=== PATIENT | male | born 1975 | race Caucasian/White ===

== ENCOUNTER 2016-12-09 18:21 | Emergency (ER) | payer SELFPAY ==
[~2016-12-09] VITALS: Ht 190.5 cm; Wt 172.0 kg
[2016-12-09 18:22] VITALS: BP 145/99; PULSE 100; RESP 24; TEMP 99.1; O2SAT 98
--- NOTE | 2016-12-09 18:42 | PD ---
Physical Exam Date Seen by Provider: Dec 09, 2016 Time Seen by Provider: 18:39 Narrative 41-year-old white male presents to emergency Department with complaints of sudden onset shortness of breath, difficulty breathing, tingling and flushing to face. Patient has similar episode last week but included a headache. This resolved spontaneously. No recent illness. Vital signs reviewed. Awaiting bed placement Data Data Last Documented VS Vital Signs Date Time Temp Pulse Resp B/P (MAP) Pulse Ox O2 Delivery O2 Flow Rate FiO2 12/09/16 18:22 99.1 100 24 145/99 (114) 98 Room Air [facility] Medical Record Reviewed: No Supervised Visit with TRAVIS: No Scripts No Active Prescriptions or Reported Meds Domingo Gaitan Dec 09, 2016 18:42
[2016-12-09 18:52] VITALS: BP 152/81; PULSE 89; RESP 20; TEMP 97.8; O2SAT 98
[2016-12-09] MEDS ORDERED: RESP: ALBUTEROL 2.5 MG/IPRATROPIUM 0.5 MG NEB (SCH) INH ONE (19:00)
--- NOTE | 2016-12-09 19:01 | PD ---
HPI Chief Complaint: Respiratory Symptoms Time Seen by Provider: 18:50 Travel History International Travel<30 days: No Contact w/Intl Traveler<30days: No Traveled to known affect area: No History of Present Illness HPI This is a 41-year-old male who denies any significant past medical history. He reports for evaluation of dyspnea and tingling on the scalp. He reports that he was at work today walking across the [employer] when he developed sudden dyspnea with associated tingling sensation on the scalp. It feels like he cannot catch her complete breath. He reports that he had similar symptoms last week which lasted for approximately one hour and resolved spontaneously. He had similar symptoms for 20 minutes one other time a few weeks ago which resolved spontaneously. He is currently experiencing the sensation. He denies any cough or congestion, chest pain, palpitations, abdominal pain, nausea or vomiting, recent travel, recent surgery, recent illness. He endorses occasional tobacco use. He denies any anxiety, depression, recent social stressors, any illicit drug use. He has no other complaints at this time. [facility] Past Medical History Medical History: Denies Significant Hx Diminished Hearing: No Tetanus Vaccination: < 5 Years Influenza Vaccination: No Social History Alcohol Use: No (pt denies) Tobacco Use: Yes Substance Use: No (pt denies) Allergies-Medications (Allergen,Severity, Reaction): Coded Allergies: No Known Allergies (Verified , 12/09/16) Reported Meds & Prescriptions Reported Meds & Active Scripts Active No Active Prescriptions or Reported Medications Review of Systems Except as stated in HPI: all other systems reviewed are Neg Physical Exam Narrative GENERAL: Well-developed well-nourished male in no acute distress SKIN: Warm and dry. HEAD: Atraumatic. Normocephalic. EYES: Pupils equal and round. No scleral icterus. No injection or drainage. ENT: No nasal bleeding or discharge. Mucous membranes pink and moist. NECK: Trachea midline. No JVD. No lymphadenopathy. Neck supple. CARDIOVASCULAR: Regular rate and rhythm. No murmur appreciated. RESPIRATORY: No accessory muscle use. Clear to auscultation. Breath sounds equal bilaterally. No obvious crackles, wheezing or rhonchi. No tachypnea. GASTROINTESTINAL: Abdomen soft, non-tender, nondistended. Hepatic and splenic margins not palpable. MUSCULOSKELETAL: No obvious deformities. There is no lower extremity edema with negative Homans bilaterally. The left leg appears normal. 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 NEUROLOGICAL: Awake and alert. No obvious cranial nerve deficits. Motor grossly within normal limits. Normal speech. PSYCHIATRIC: Appropriate mood and affect; insight and judgment normal. Data Data Last Documented VS Vital Signs Date Time Temp Pulse Resp B/P (MAP) Pulse Ox O2 Delivery O2 Flow Rate FiO2 12/09/16 20:40 79 18 127/89 (102) 98 Room Air 12/09/16 18:52 97.8 Orders Orders Complete Blood Count With Diff (12/09/16 19:00) Comprehensive Metabolic Panel (12/09/16 19:00) D-Dimer (12/09/16 19:00) Magnesium (Mg) (12/09/16 19:00) Ckmb (Isoenzyme) Profile (12/09/16 19:00) Troponin I (12/09/16 19:00) Electrocardiogram (12/09/16 19:00) Ecg Monitoring (12/09/16 19:00) Oximetry (12/09/16 19:00) Chest, Single Ap (12/09/16 19:00) Albuterol-Ipratropium Neb (Duoneb Neb) (12/09/16 19:00) CKMB (12/09/16 19:28) CKMB% (12/09/16 19:28) Labs Laboratory Tests Test 12/09/16 19:28 White Blood Count 6.9 TH/MM3 Red Blood Count 4.48 MIL/MM3 Hemoglobin 15.4 GM/DL Hematocrit 42.2 % Mean Corpuscular Volume 94.1 FL Mean Corpuscular Hemoglobin 34.3 PG Mean Corpuscular Hemoglobin Concent 36.4 % Red Cell Distribution Width 13.3 % Platelet Count 207 TH/MM3 Mean Platelet Volume 8.9 FL Neutrophils (%) (Auto) 66.9 % Lymphocytes (%) (Auto) 22.3 % Monocytes (%) (Auto) 7.6 % Eosinophils (%) (Auto) 2.7 % Basophils (%) (Auto) 0.5 % Neutrophils # (Auto) 4.6 TH/MM3 Lymphocytes # (Auto) 1.5 TH/MM3 Monocytes # (Auto) 0.5 TH/MM3 Eosinophils # (Auto) 0.2 TH/MM3 Basophils # (Auto) 0.0 TH/MM3 CBC Comment AUTO DIFF Differential Comment AUTO DIFF CONFIRMED Platelet Estimate NORMAL Platelet Morphology Comment NORMAL D-Dimer Quantitative (PE/DVT) 0.27 MG/L FEU Blood Urea Nitrogen 6 MG/DL Creatinine 1.04 MG/DL Random Glucose 106 MG/DL Total Protein 7.0 GM/DL Albumin 3.9 GM/DL Calcium Level 8.6 MG/DL Magnesium Level 2.2 MG/DL Alkaline Phosphatase 77 U/L Aspartate Amino Transf (AST/SGOT) 33 U/L Alanine Aminotransferase (ALT/SGPT) 69 U/L Total Bilirubin 0.5 MG/DL Sodium Level 139 MEQ/L Potassium Level 3.8 MEQ/L Chloride Level 106 MEQ/L Carbon Dioxide Level 26.2 MEQ/L Anion Gap 7 MEQ/L Estimat Glomerular Filtration Rate 80 ML/MIN Total Creatine Kinase 385 U/L Creatine Kinase MB 2.5 NG/ML Creatine Kinase MB % 0.6 % Troponin I LESS THAN 0.02 NG/ML MDM Medical Decision Making Medical Screen Exam Complete: Yes Emergency Medical Condition: Yes Medical Record Reviewed: Yes Differential Diagnosis Anxiety, atelectasis, spontaneous pneumothorax, pulmonary embolism, electrolyte abnormality, arrhythmia Narrative Course This is a 41-year-old male who has been experiencing episodes of spontaneous dyspnea over the past few weeks which last approximately one hour. He is currently Greig any symptoms. He reports associated scalp tingling sensation. On examination he is obese with a BMI of 47.4. Physical examination is otherwise unremarkable. He was mildly tachycardic in triage. The patient will be placed on ECG monitoring and pulse oximetry. A chest x-ray has been ordered. A 12-lead EKG has been ordered. Basic lab work is been ordered. Primary examination the patient does feel improved and feels that the DuoNeb helped with his symptoms. His CBC is unremarkable. EKG reveals sinus rhythm with occasional PVCs. CK is 385 but his lab work is otherwise unremarkable. D- dimer is negative. Chest x-ray is normal. I At this point and the plan is to discharge the patient with close follow-up with primary care physician. He is stable for discharge. Procedures EKG Prior to Arrival: Yes Diagnosis Primary Impression: Dyspnea Qualified Codes: R06.00 - Dyspnea, unspecified Additional Instructions: Stay well hydrated and well-nourished. Follow-up close with primary care physician. Return for any acutely new or worsening symptoms. Med/Other Pt SpecificInfo: No Change to Meds Scripts No Active Prescriptions or Reported Meds Disposition: 01 DISCHARGE HOME Condition: Stable Jeffrey Thomas Dec 09, 2016 19:01
[2016-12-09 19:24] VITALS: RESP 18; O2SAT 98
--- NOTE | 2016-12-09 19:44 | RADRPT ---
EXAM DATE/TIME: 12/09/2016 19:05 [place] COMPARISON: No previous studies available for comparison. INDICATIONS : Shortness of breath and dizziness. MEDICAL HISTORY : None. SURGICAL HISTORY : None. ENCOUNTER: Initial ACUITY: 1 day PAIN SCORE: 0/10 LOCATION: chest FINDINGS: A single view of the chest demonstrates the lungs to be symmetrically aerated without evidence of mas s, infiltrate or effusion. The cardiomediastinal contours are unremarkable. Osseous structures are intact. CONCLUSION: No acute disease. Sachin Pittman MD on December 09, 2016 at 19:43 Board Certified Radiologist. This report was verified electronically.
[2016-12-09 19:46] VITALS: BP 152/81; PULSE 82; RESP 18; O2SAT 97
[2016-12-09 19:49] LABS: AUTOMATED NEUTROPHIL # 4.6 TH/MM3 (1.8-7.7); BASOPHIL % 0.5 % (0.0-2.0); EOSINOPHIL # 0.2 TH/MM3 (0-0.4); EOSINOPHIL % 2.7 % (0.0-4.0); HEMATOCRIT 42.2 % (39.0-51.0); LYMPH % 22.3 % (9.0-44.0); LYMPHOCYTE # 1.5 TH/MM3 (1.0-4.8); MEAN CELL VOLUME 94.1 FL (80.0-100.0); MEAN CORPUSCULAR HEMOGLOBIN 34.3 PG (27.0-34.0); MONO % 7.6 % (0.0-8.0); NEUT % 66.9 % (16.0-70.0); PLATELET COUNT 207 TH/MM3 (150-450); RED BLOOD COUNT 4.48 MIL/MM3 (4.50-5.90); RED CELL DISTRIBUTION WIDTH 13.3 % (11.6-17.2); WHITE BLOOD COUNT 6.9 TH/MM3 (4.0-11.0)
[2016-12-09 20:02] LABS: ANION GAP 7 MEQ/L (5-15); AST (GOT) 33 U/L (15-37); BICARBONATE 26.2 MEQ/L (21.0-32.0); BLOOD UREA NITROGEN 6 MG/DL (7-18); CHLORIDE 106 MEQ/L (98-107); GLOMERULAR FILTRATION RATE 80 ML/MIN (>89); MAGNESIUM 2.2 MG/DL (1.5-2.5); POTASSIUM 3.8 MEQ/L (3.5-5.1); SODIUM (NA) 139 MEQ/L (136-145)
[2016-12-09 20:03] LABS: ALT (GPT) 69 U/L (12-78)
[2016-12-09 20:05] LABS: HEMO FLAGS AUTO DIFF; MEAN CORPUSCULAR HGB CONC 36.4 % (32.0-36.0)
[2016-12-09 20:07] LABS: ALKALINE PHOSPHATASE 77 U/L (45-117); CREATINE KINASE 385 U/L (39-308); TOTAL BILIRUBIN ADULT 0.5 MG/DL (0.2-1.0)
[2016-12-09 20:19] LABS: CKMB 2.5 NG/ML (0.5-3.6)
[2016-12-09 20:40] VITALS: BP 127/89; PULSE 79; RESP 18; O2SAT 98
[2016-12-09 20:46] LABS: PLATELET ESTIMATE SMEAR NORMAL (NORMAL); PLATELET MORPHOLOGY NORMAL (NORMAL); SCAN/DIFF AUTO DIFF CONFIRMED
--- NOTE | 2016-12-09 23:29 | EKG ---
Date Performed: 12/09/2016 Time Performed: 19:28:32 PTAGE: 41 years EKG: Sinus rhythm WITH OCCASIONAL VENTRICULAR PREMATURE COMPLEXES BORDERLINE ECG NO PREVIOUS TRACING DOCTOR: Eren Dubon Interpretating Date/Time 12/09/2016 23:28:13
== END 2016-12-09 21:08 | disposition home or self-care (01) ==
LOC: NEPE 18:21
DX: R06.02 Shortness of breath (principal); I49.3 Ventricular premature depolarization; E66.9 Obesity, unspecified; Z68.42 Body mass index [BMI] 45.0-49.9, adult; Z72.0 Tobacco use
CPT/HCPCS: 71010; 80053; 82550; 82552; 83735; 84484; 85025; 85379; 93005; 94664; 99285

== ENCOUNTER 2018-01-09 00:47 | Inpatient (IN) ==
[2018-01-09] MEDS ORDERED: Acetaminophen 650 MG Supp RECTAL ONE (01:12)
[2018-01-09] MEDS ORDERED: Vancomycin Inj 1 GM/200 ML PIGGYBACK IV.SIG ONE (01:14)
[2018-01-09] MEDS ORDERED: Piperacil/Tazo 4.5 GM Premix 4.5 GM/100 ML BAG IV.SIG ONE (01:14)
--- NOTE | 2018-01-09 01:28 | ED ---
HPI General Chief Complaint: Abdominal Pain Stated Complaint: Abd pain Time Seen by Provider: 01/09/18 01:08 Source: patient Mode of arrival: ambulatory Limitations: no limitations History of Present Illness HPI narrative: 42-year-old male came to the emergency room with history of left lower quadrant pain. Patient says the pain started yesterday. Many years ago he had a history of diverticulitis in the pain felt very similar. He felt constipated and took some laxative and went to bed. He woke up about an hour ago with fever and chills. Has been he decided to come to the emergency room. No history of nausea or vomiting. Patient was febrile with a temperature of 101.5 and tachycardic in triage. Patient did not take anything for fever or pain at home. Pain radiates slightly to the suprapubic area. Pain is worse when he is moving. At rest the pain is 1 and with movement it goes up to 6. complaint: Reports abdominal pain Onset (ago): day(s) Pain Consistency: constant Location: Reports LLQ Severity: moderate Severity scale (1-10): 6 Migration to: Reports suprapubic Relieving factors: rest Exacerbating factors: movement Related Data Home Medications Medication Instructions Recorded Confirmed No Known Home Medications 01/09/18 01/09/18 Allergies Allergy/AdvReac Type Severity Reaction Status Date / Time No Known Allergies Allergy Verified 01/09/18 00:52 Review of Systems ROS: all other systems reviewed are negative Constitutional Reports chills and Reports fever(s) Gastrointestinal Reports abdominal pain PMFSH Medical History Medical History Diverticulosis (Acute) [place] teeth extracted (Acute) Surgical History Surgical History H/O foot surgery (Acute) Previous back surgery (Acute) Social History Social History Substance History: No History of Abuse Second Hand Smoke Exposure: No Smoking Status: Current every day smoker Tobacco Type: Cigarettes How Often Do You Have a Drink Containing Alcohol: Monthly or less Recent Travel in [facility] within the Last 8 Weeks: No Recent Out of Country Travel within the Last 8 Weeks: No Immunization History Tetanus Immunization: >5 Years Exam Narrative Exam Narrative: GENERAL: Awake, alert, morbidly obese, moderate distress SKIN: Focused skin assessment warm/dry. HEAD: Atraumatic. Normocephalic. EYES: Pupils equal and round. No scleral icterus. No injection or drainage. ENT: No nasal bleeding or discharge. Dry mucous membrane. NECK: Trachea midline. No JVD. CARDIOVASCULAR: Regular rate and rhythm. No murmur appreciated. RESPIRATORY: No accessory muscle use. Clear to auscultation. Breath sounds equal bilaterally. GASTROINTESTINAL: Tenderness and guarding in the left lower quadrant, nondistended. Hepatic and splenic margins not palpable. MUSCULOSKELETAL: No obvious deformities. No clubbing. No cyanosis. No edema. NEUROLOGICAL: Awake and alert. No obvious cranial nerve deficits. Motor grossly within normal limits. Normal speech. PSYCHIATRIC: Appropriate mood and affect; insight and judgment normal. Course Initial Documented Vital Signs Temperature 101.4 F H 01/09/18 00:52 Pulse Rate 116 H 01/09/18 00:52 Respiratory Rate 18 01/09/18 00:52 Blood Pressure 186/104 H 01/09/18 00:52 Pulse Oximetry 97 01/09/18 00:52 Last Documented Vital Signs Temperature 98.5 F 01/11/18 00:00 Pulse Rate 69 01/11/18 04:07 Respiratory Rate 18 01/11/18 00:00 Blood Pressure 134/82 01/11/18 00:00 Pulse Oximetry 97 01/11/18 00:00 Medical Decision Making [facility] Narrative Medical decision making narrative: 1:29 AM sepsis workup has been initiated. Patient is getting IV Zosyn and vancomycin and IV fluid bolus as per sepsis protocol. Awaiting for CAT scan to be done and resulted. Tylenol suppository has been added since I do not want patient to be taking anything p.o. at this point. My suspicion is high for an abscess with a possible perforation. 3:[address] scan shows diverticulitis without an abscess or perforation. Patient is still slightly tachycardic with heart rate of 101. White blood cell count is elevated with left shift. I informed him about the test results. I have expressed to him that given his fever and leukocytosis I would like to keep him in the hospital for 2 more doses of IV antibiotic. Patient is agreeable with the plan. Awaiting for the hospitalist callback. Medical Screen Exam Complete: Yes Emergency Medical Condition: Yes Lab Data Result diagrams: 01/09/18 01:40 01/09/18 01:40 Lab Results 01/09/18 01/09/18 01/09/18 Range/Units 01:40 01:40 01:40 WBC 14.0 H (4.0-11.0) th/mm3 RBC 4.86 (4.50-5.90) mil/mm3 Hgb 16.2 (13.0-17.0) gm/dL Hct 46.4 (39.0-51.0) % MCV 95.6 (80.0-100.0) fL MCH 33.4 (27.0-34.0) pg MCHC 35.0 (32.0-36.0) % RDW 14.0 (11.6-17.2) % Plt Count 234 (150-450) th/mm3 MPV 8.8 (7.0-11.0) fL Neut % (Auto) 78.0 H (16.0-70.0) % Lymph % (Auto) 11.7 (9.0-44.0) % [place] % (Auto) 7.8 (0.0-8.0) % Eos % (Auto) 2.0 (0.0-4.0) % Baso % (Auto) 0.5 (0.0-2.0) % Neut # (Auto) 10.9 H (1.8-7.7) th/mm3 Lymph # (Auto) 1.6 (1.0-4.8) th/mm3 [place]ney # (Auto) 1.1 H (0.0-0.9) th/mm3 Eos # (Auto) 0.3 (0.0-0.4) th/mm3 Baso # (Auto) 0.1 (0.0-0.2) th/mm3 WBC Differential . Differential Comment Auto diff final Sodium 140 (136-145) meq/L Potassium 3.5 (3.5-5.1) meq/L Chloride 108 H (98-107) meq/L Carbon Dioxide 26.4 (21.0-32.0) meq/L Anion Gap 6 (5-15) meq/L BUN 8 (7-18) mg/dL Creatinine 0.95 (0.60-1.30) mg/dL Estimated GFR 88 L (>89) mL/min Random Glucose 92 (74-106) mg/dL Lactic Acid 0.7 (0.4-2.0) mmol/L Calcium 8.3 L (8.5-10.1) mg/dL Magnesium 2.5 (1.5-2.5) mg/dL Total Bilirubin 0.8 (0.2-1.0) mg/dL AST 15 (15-37) U/L ALT 31 (12-78) U/L Alkaline Phosphatase 87 (45-117) U/L Total Protein 7.3 (6.4-8.2) g/dL Albumin 3.7 (3.4-5.0) g/dL Urine Color (Yellw/Straw) Urine Clarity (Clear) Urine pH (5.0-8.5) Ur Specific [place] (1.002-1.035) Urine Protein (Neg-Trace) mg/dL Urine Glucose (UA) (Negative) mg/dL Urine Ketones (Negative) mg/dL Urine Occult Blood (Negative) Urine Nitrate (Negative) Urine Bilirubin (Negative) Urine Urobilinogen (Less than 2) mg/dL Ur Leukocyte Esterase (Negative) Urine RBC (0-3) /hpf Urine WBC (0-5) /hpf Urine Mucus (Occasional) /lpf Micro UA Comment Ur Microscopic Review Urine Culture Comments 01/09/18 Range/Units 04:15 WBC (4.0-11.0) th/mm3 RBC (4.50-5.90) mil/mm3 Hgb (13.0-17.0) gm/dL Hct (39.0-51.0) % MCV (80.0-100.0) fL MCH (27.0-34.0) pg MCHC (32.0-36.0) % RDW (11.6-17.2) % Plt Count (150-450) th/mm3 MPV (7.0-11.0) fL Neut % (Auto) (16.0-70.0) % Lymph % (Auto) (9.0-44.0) % [place] % (Auto) (0.0-8.0) % Eos % (Auto) (0.0-4.0) % Baso % (Auto) (0.0-2.0) % Neut # (Auto) (1.8-7.7) th/mm3 Lymph # (Auto) (1.0-4.8) th/mm3 [place]ney # (Auto) (0.0-0.9) th/mm3 Eos # (Auto) (0.0-0.4) th/mm3 Baso # (Auto) (0.0-0.2) th/mm3 WBC Differential Differential Comment Sodium (136-145) meq/L Potassium (3.5-5.1) meq/L Chloride (98-107) meq/L Carbon Dioxide (21.0-32.0) meq/L Anion Gap (5-15) meq/L BUN (7-18) mg/dL Creatinine (0.60-1.30) mg/dL Estimated GFR (>89) mL/min Random Glucose (74-106) mg/dL Lactic Acid (0.4-2.0) mmol/L Calcium (8.5-10.1) mg/dL Magnesium (1.5-2.5) mg/dL Total Bilirubin (0.2-1.0) mg/dL AST (15-37) U/L ALT (12-78) U/L Alkaline Phosphatase (45-117) U/L Total Protein (6.4-8.2) g/dL Albumin (3.4-5.0) g/dL Urine Color Yellow (Yellw/Straw) Urine Clarity Clear (Clear) Urine pH 5.0 (5.0-8.5) Ur Specific [place] 1.027 (1.002-1.035) Urine Protein Negative (Neg-Trace) mg/dL Urine Glucose (UA) Negative (Negative) mg/dL Urine Ketones Negative (Negative) mg/dL Urine Occult Blood Negative (Negative) Urine Nitrate Negative (Negative) Urine Bilirubin Negative (Negative) Urine Urobilinogen Less than 2 (Less than 2) mg/dL Ur Leukocyte Esterase Negative (Negative) Urine RBC 1 (0-3) /hpf Urine WBC Less than 1 (0-5) /hpf Urine Mucus Few H (Occasional) /lpf Micro UA Comment Culture not ind Ur Microscopic Review Not Reportable Urine Culture Comments Culture not ind Imaging Data Radiologist's impression: Abdomen/Pelvis CT 01/09/18 01:12 CONCLUSION: 1. Diverticulitis of the distal descending colon. Prominent inflammatory changes but no perforation or abscess. 2. Right renal low-density likely cyst. 3. Density in the posterior mediastinum just posterior to the right aspect of the left atrium measuring 3.7 x 4.2 cm. This may be related to a duplication cyst or other benign etiology. Outpatient PET CT scan recommended. Chest X-Ray 01/09/18 01:12 CONCLUSION: No acute cardiopulmonary disease. Discharge Plan Discharge Disposition Patient Disposition: 30 Still Patient Physicians Team ED Provider: Ron Bishop Primary Care Provider: Primary Care Shama Vincent Attending Provider: Ronald Alexander Other Providers: Rasta Shrestha Status ED Status: Left Department Discharge Information Discharge Date/Time: 01/09/18 05:24
--- NOTE | 2018-01-09 01:41 | XR ---
EXAM DATE: 01/09/2018 1:12 AM EDT AGE/SEX: 42 years / Male INDICATIONS: Fever. CLINICAL DATA: This is the patient's initial encounter. Patient reports that signs and symptoms have been present for 1 day and indicates a pain score of 0/10. MEDICAL/SURGICAL HISTORY: Hypertension. None. COMPARISON: [facility] [place], CHEST SINGLE AP, 12/09/2016. . FINDINGS: A single AP view of the chest demonstrates the lungs to be symmetrically aerated without evidence of mass, infiltrate or effusion. The cardiomediastinal contours are unremarkable. Osseous structures a re intact. CONCLUSION: No acute cardiopulmonary disease. Electronically signed by: Surinder Su MD 01/09/2018 1:39 AM EDT
[2018-01-09 01:54] LABS: Baso # (Auto) 0.1 th/mm3 (0.0-0.2); Baso % (Auto) 0.5 % (0.0-2.0); Eos # (Auto) 0.3 th/mm3 (0.0-0.4); Hematocrit 46.4 % (39.0-51.0); Hemoglobin 16.2 gm/dL (13.0-17.0); Lymph # (Auto) 1.6 th/mm3 (1.0-4.8); Lymph % (Auto) 11.7 % (9.0-44.0); Mean Corpuscular Hemoglobin 33.4 pg (27.0-34.0); Mean Corpuscular Volume 95.6 fL (80.0-100.0); Mean Platelet Volume 8.8 fL (7.0-11.0); Mono # (Auto) 1.1 th/mm3 (0.0-0.9); Mono % (Auto) 7.8 % (0.0-8.0); Neut # (Auto) 10.9 th/mm3 (1.8-7.7); Platelet Count 234 th/mm3 (150-450); Red Blood Count 4.86 mil/mm3 (4.50-5.90)
[2018-01-09 02:40] LABS: Alanine Aminotransferase 31 U/L (12-78); Albumin 3.7 g/dL (3.4-5.0); Anion Gap 6 meq/L (5-15); Aspartate Aminotransferase 15 U/L (15-37); Blood Urea Nitrogen 8 mg/dL (7-18); Calcium 8.3 mg/dL (8.5-10.1); Carbon Dioxide 26.4 meq/L (21.0-32.0); Chloride 108 meq/L (98-107); Glomerular Filtration Rate 88 mL/min (>89); Glucose,Random 92 mg/dL (74-106); Magnesium 2.5 mg/dL (1.5-2.5); Potassium 3.5 meq/L (3.5-5.1); Sodium 140 meq/L (136-145)
[2018-01-09 02:43] LABS: Alkaline Phosphatase 87 U/L (45-117); Total Protein 7.3 g/dL (6.4-8.2)
[2018-01-09] MEDS ORDERED: Vancomycin Inj 1,000 MG in Sodium Chlor 0.9% Inj 250 ML IV.SIG ONE (03:00)
--- NOTE | 2018-01-09 03:37 | CT ---
EXAM DATE: 01/09/2018 1:53 AM EDT AGE/SEX: 42 years / Male INDICATIONS: Left lower quadrant pain and fever X 2 days. CLINICAL DATA: This is the patient's initial encounter. Patient reports that signs and symptoms have been present for 2 days and indicates a pain score of 7/10. MEDICAL/SURGICAL HISTORY: Diverticulosis. . Back surgery ORAL CONTRAST: No oral contrast ingested. RADIATION DOSE: 32.94 CTDI (mGy) ; Patient body habitus COMPARISON: C, CHEST 1V SINGLE AP, 01/09/2018. C, CHEST SINGLE AP, 12/09/2016. . TECHNIQUE: Multiple contiguous axial images were obtained through the abdomen and pelvis following b olus infusion of 96 ml Omnipaque 350 (iohexol) nonionic water-soluble contrast as a single exam dos e. No oral contrast ingested. Using automated exposure control and adjustment of the mA and/or kV ac cording to patient size, radiation dose was kept as low as reasonably achievable to obtain optimal di agnostic quality images. DICOM format image data is available electronically for review and comparis on. FINDINGS: Lower Lungs: The visualized lower lungs are clear. Density in the posterior mediastinum just posterio r to the right aspect of the left atrium measuring 4.2 x 3.7 cm. Hounsfield units are 33.5. Liver: The liver has a homogeneous density without space-occupying lesion. There is no dilation of th e biliary tree. Spleen: Homogeneous density without enlargement. Pancreas: Unremarkable without mass or calcification. Kidneys: Normal in size and shape. No evidence of mass or hydronephrosis. Several right-sided renal low densities. Adrenal Glands: Unremarkable. Aorta: The aorta and proximal iliac vessels are grossly unremarkable without aneurysmal dilation. Bowel/Mesentery: There is wall thickening and inflammatory changes of the descending colon likely sec ondary to diverticulitis. There is some thickening along the paracolic gutter on the left. Abdominal Wall: Intact. Retroperitoneum: No evidence of adenopathy in the retrocrural, para-aortic, or deep pelvic regions. Bladder: Contours are smooth. Reproductive Organs: No abnormal masses or calcifications seen. Inguinal: The inguinal region is unremarkable without evidence of adenopathy. Bony Structures: Unremarkable. CONCLUSION: 1. Diverticulitis of the distal descending colon. Prominent inflammatory changes but no perforation or abscess. 2. Right renal low-density likely cyst. 3. Density in the posterior mediastinum just posterior to the right aspect of the left atrium measur ing 3.7 x 4.2 cm. This may be related to a duplication cyst or other benign etiology. Outpatient PET CT scan recommended. Electronically signed by: Surinder Su MD 01/09/2018 3:36 AM EDT
[2018-01-09] MEDS ORDERED: Acetaminophen 325 MG Tablet PO PRN (04:14)
[2018-01-09 04:43] LABS: Bilirubin,Urine Negative (Negative); Clarity,Urine Clear (Clear); Color,Urine Yellow (Yellw/Straw); Glucose,Urine (UA) Negative (Negative); Leukocyte Esterase,Urine Negative (Negative); Mucus,Urine Few /lpf (Occasional); Nitrite,Urine Negative (Negative); Specific Gravity,Urine 1.027 (1.002-1.035)
[2018-01-09] MEDS: Sod Chloride 0.9% Inj 1,000 ML IV.CONT SCH ×2 (05:24→16:37)
--- NOTE | 2018-01-09 10:18 | P.HPIM ---
History of Present Illness Primary Care Physician: No Primary Care Physician History of Present Illness: Pt is 42 yo with hx of spina bifida and repair of "sacromeningocoele: at [facility] when he was 14. Pt says about 6 yrs ago had episode of diverticulitis resolved with po abx. 2 days ago was noted to have some constipation and hard stool. took laxative. yesterday developed severe left lower quad abdomen pain then fevers. no vomiting. Pt seen in ED and had elevated wbc and fever and CT a/p showed: 1. Diverticulitis of the distal descending colon. Prominent inflammatory changes but no perforation or abscess. 2. Right renal low-density likely cyst. 3. Density in the posterior mediastinum just posterior to the right aspect of the left atrium measuring 3.7 x 4.2 cm. This may be related to a duplication cyst or other benign etiology. Outpatient PET CT scan recommended. Pt given vanc and zosyn in ED and admitted. Currently pt says pain has improved but not resolved. 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 s/p surgical correction diverticulitis SH: rare etoh 1 ppd tob x 15yrs FH: father dissection aorta AVR - Diagnosis (1) Diverticulitis (2) Mediastinal cyst, congenital Inpatient Certification: I certify that the inpatient services were ordered in accordance with Medicare regulations governing the order. This includes certification that hospital inpatient services are reasonable and necessary and in the case of services not specified as inpatient-only under 42 CFR 419.22(n), that they are appropriately provided as inpatient services in accordance to with the 2-midnight benchmark under 43 CFR 412.3(e) Estimated Total Length of Stay (Days): 3 Plans for Post Hospital Care: Home Review of Systems left lower quadrant abdomen pain PMFSH - History History Provided By: Patient - Medical History Medical History: Medical History (Last Reviewed 01/09/18 @ 01:26 by Ron Bishop MD) Diverticulosis [place] teeth extracted - Surgical History Surgical History: Surgical History (Last Reviewed 01/09/18 @ 01:27 by Ron Bishop MD) H/O foot surgery Previous back surgery - Tobacco History Second Hand Smoke Exposure: No Tobacco Use In Past 30 Days: Yes Smoking Status: Current every day smoker Tobacco Type: Cigarettes - Alcohol History How Often Do You Have a Drink Containing Alcohol: Monthly or less - Substance Use History Substance History: No History of Abuse - Travel History Recent Travel in the [place] Within the Last 8 Weeks: No Recent Travel Out of the Country Within the Last 8 Weeks: No - Immunization History Tetanus Immunization: >5 Years Hx Influenza Vaccine This Season: No Medications and Allergies Active Medications: Active Medications Acetaminophen (Tylenol) 650 mg PO Q4H PRN PRN Reason: FEVER Levofloxacin/Dextrose (Levaquin 500 Mg Premix Inj) 500 mg in 100 mls @ 100 mls/ hr IV.SIG Q24H YAO Metronidazole/Sodium Chloride (Flagyl 500 Mg Inj) 100 mls @ 100 mls/hr IV.SIG Q8H YAO Sodium Chloride (Ns Inj) 1,000 mls @ 100 mls/hr IV.CONT .Q10H YAO Last Admin: 01/09/18 05:24 Dose: 100 mls/hr Ondansetron HCl (Zofran Inj) 4 mg IV.PUSH Q6H PRN PRN Reason: NAUSEA OR VOMITING Allergies Allergy/AdvReac Type Severity Reaction Status Date / Time No Known Allergies Allergy Verified 01/09/18 00:52 Home Medications Medication Instructions Recorded Confirmed Type No Known Home Medications 01/09/18 01/09/18 History Exam Vital signs: Vital Signs 01/09/18 00:52 01/09/18 01:12 01/09/18 02:24 Temperature 101.4 F H Pulse Rate 116 H 109 H 110 H Respiratory Rate 18 20 Blood Pressure 186/104 H 148/83 H Pulse Oximetry 97 96 99 01/09/18 03:30 01/09/18 04:00 01/09/18 06:15 Temperature 99.6 F Pulse Rate 100 H 92 H 90 Respiratory Rate 18 18 Blood Pressure 138/75 157/86 H Pulse Oximetry 93 L Intake & Output 01/08/18 01/09/18 01/09/18 18:59 06:59 18:59 Intake Total 350 / 350 Balance 350 / 350 Weight 157.8 kg Intake: IV 350 / 350 Zosyn 4.5 GM Premix 4.5 gm In 100 / 100 100 ml @ 200 mls/hr IV.SIG ONCE ONE Rx#:[id number] Vancomycin Inj 1,000 MG In NS 250 / 250 Inj 250 ML @ 250 mls/hr IV.SIG ONCE ONE Rx#:[id number] Other: Date of Last Bowel Movement 01/08/18 Weight On Admission 157.8 kg heart reg lung cta abd left lower quad tender. bs. nd ext no edema Results - Labs CBC & Chem 7: 01/09/18 01:40 01/09/18 01:40 Labs: Short CBC 01/09/18 Range/Units 01:40 WBC 14.0 H (4.0-11.0) th/mm3 Hgb 16.2 (13.0-17.0) gm/dL Hct 46.4 (39.0-51.0) % Plt Count 234 (150-450) th/mm3 BMP 01/09/18 01:40 Sodium 140 Potassium 3.5 Chloride 108 H Carbon Dioxide 26.4 BUN 8 Creatinine 0.95 Calcium 8.3 L Liver Function 01/09/18 Range/Units 01:40 Total Bilirubin 0.8 (0.2-1.0) mg/dL AST 15 (15-37) U/L ALT 31 (12-78) U/L Alkaline Phosphatase 87 (45-117) U/L Albumin 3.7 (3.4-5.0) g/dL Urine 01/09/18 Range/Units 04:15 Urine Color Yellow (Yellw/Straw) Urine Clarity Clear (Clear) Urine pH 5.0 (5.0-8.5) Ur Specific [place] 1.027 (1.002-1.035) Urine Protein Negative (Neg-Trace) mg/dL Urine Glucose (UA) Negative (Negative) mg/dL - Imaging Impressions Abdomen/Pelvis CT 01/09/18 01:12 CONCLUSION: 1. Diverticulitis of the distal descending colon. Prominent inflammatory changes but no perforation or abscess. 2. Right renal low-density likely cyst. 3. Density in the posterior mediastinum just posterior to the right aspect of the left atrium measuring 3.7 x 4.2 cm. This may be related to a duplication cyst or other benign etiology. Outpatient PET CT scan recommended. Chest X-Ray 01/09/18 01:12 CONCLUSION: No acute cardiopulmonary disease. Caprini VTE Risk Assessment Caprini VTE Risk Assessment: No/Low Risk (score <= 1) Caprini Risk Assessment Model: Point Value = 1 Point Value = 2 Point Value = 3 Point Value = 5 Age 41-60 Minor surgery BMI > 25 kg/m2 Swollen legs Varicose veins or History of unexplained or recurrent spontaneous Oral contraceptives or hormone replacement Sepsis (< 1 month) Serious lung disease, including pneumonia (< 1 month) Abnormal pulmonary function Acute myocardial infarction Congestive heart failure (< 1 month) History of inflammatory bowel disease Medical patient at bed rest Age 61-74 Arthroscopic surgery Major open surgery (> 45 min) Laparoscopic surgery (> 45 min) Malignancy Confined to bed (> 72 hours) Immobilizing plaster cast Central venous access Age >= 75 History of VTE Family history of VTE Factor V Leiden Prothrombin [id number] Lupus anticoagulant Anticardiolipin antibodies Elevated serum homocysteine Heparin-induced thrombocytopenia Other congenital or acquired thrombophilia Stroke (< 1 month) Elective arthroplasty Hip, pelvis, or leg fracture Acute spinal cord injury (< 1 month) Prophylaxis Regimen: Total Risk Factor Score Risk Level Prophylaxis Regimen 0-1 Low Early ambulation 2 Moderate Order ONE of the following: *Sequential Compression Device (SCD) *Heparin 5000 units SQ BID 3-4 Higher Order ONE of the following medications: *Heparin 5000 units SQ TID *Enoxaparin/Lovenox 40 mg SQ daily (WT < 150 kg, CrCl > 30 mL/min) *Enoxaparin/Lovenox 30 mg SQ daily (WT < 150 kg, CrCl > 10-29 mL/min) *Enoxaparin/Lovenox 30 mg SQ BID (WT < 150 kg, CrCl > 30 mL/min) AND/OR *Sequential Compression Device (SCD) 5 or more Highest Order ONE of the following medications: *Heparin 5000 units SQ TID (Preferred with Epidurals) *Enoxaparin/Lovenox 40 mg SQ daily (WT < 150 kg, CrCl > 30 mL/min) *Enoxaparin/Lovenox 30 mg SQ daily (WT < 150 kg, CrCl > 10-29 mL/min) *Enoxaparin/Lovenox 30 mg SQ BID (WT < 150 kg, CrCl > 30 mL/min) AND *Sequential Compression Device (SCD) Assessment and Plan - Assessment (1) Diverticulitis Code(s): K57.92 - Diverticulitis of intestine, part unspecified, without perforation or abscess without bleeding Status: Acute Plan: 1. acute diverticulitis cont levaquin /flagyl liquid diet today prn pain control cont ivf NS dvt prophylaxis Pt will need to reestablish with close pcp f/u CT abd/pelvis: CONCLUSION: 1. Diverticulitis of the distal descending colon. Prominent inflammatory changes but no perforation or abscess. 2. Right renal low-density likely cyst. 3. Density in the posterior mediastinum just posterior to the right aspect of the left atrium measuring 3.7 x 4.2 cm. This may be related to a duplication cyst or other benign etiology. Outpatient PET CT scan recommended. 2. Mediastinum with apparent duplication cyst. interestingly he does have hx spina bifida and club foot so the mediastinal structure on CT is felt to be from embryonic development. however the radiologist suggested f/u pet/ct scan to assure discussed with pt. (2) Mediastinal cyst, congenital Code(s): Q34.1 - Congenital cyst of mediastinum Status: Acute H&P: Quality - VTE Deep Vein Thrombosis/Pulmonary Embolism Present on Admission: No
[2018-01-09] MEDS: Levofloxacin 500 mg Premix Inj 500 MG/100 ML PIGGYBACK IV.SIG SCH (10:38)
[2018-01-10] MEDS: Sod Chloride 0.9% Inj 1,000 ML IV.CONT SCH ×2 (04:47→11:29)
[2018-01-10] MEDS: Levofloxacin 500 mg Premix Inj 500 MG/100 ML PIGGYBACK IV.SIG SCH (08:17)
--- NOTE | 2018-01-10 19:19 | P.PNIM ---
Subjective Interval history: No new complaints. Physical Exam Vital signs: 01/10/18 09:00 01/10/18 12:00 01/10/18 16:00 Temperature 97.9 F 98.5 F Pulse Rate 82 80 65 Respiratory Rate 18 16 Blood Pressure 118/72 130/65 Pulse Oximetry 97 Narrative: General: NAD, AAOx3 Chest: CTA Cardiac: Regular Abd: +BS, soft ND/NT Ext: Atrophied RLE (chronic), no edema in the LLE Results - Labs CBC & Chem 7: 01/09/18 01:40 01/09/18 01:40 Microbiology 01/09/18 01:30 Blood - Peripheral Aerobic Blood Culture - Preliminary No growth in 1 day 01/09/18 01:30 Blood - Peripheral Anaerobic Blood Culture - Preliminary No growth in 1 day 01/09/18 01:40 Blood - Peripheral Aerobic Blood Culture - Preliminary No growth in 1 day 01/09/18 01:40 Blood - Peripheral Anaerobic Blood Culture - Preliminary No growth in 1 day Assessment and Plan - Assessment (1) Diverticulitis Code(s): K57.92 - Diverticulitis of intestine, part unspecified, without perforation or abscess without bleeding Status: Acute Plan: 1. acute diverticulitis cont levaquin /flagyl liquid diet today prn pain control cont ivf NS dvt prophylaxis Pt will need to reestablish with close pcp f/u CT abd/pelvis: CONCLUSION: 1. Diverticulitis of the distal descending colon. Prominent inflammatory changes but no perforation or abscess. 2. Right renal low-density likely cyst. 3. Density in the posterior mediastinum just posterior to the right aspect of the left atrium measuring 3.7 x 4.2 cm. This may be related to a duplication cyst or other benign etiology. Outpatient PET CT scan recommended. 2. Mediastinum with apparent duplication cyst. interestingly he does have hx spina bifida and club foot so the mediastinal structure on CT is felt to be from embryonic development. however the radiologist suggested f/u pet/ct scan to assure discussed with pt. (2) Mediastinal cyst, congenital Code(s): Q34.1 - Congenital cyst of mediastinum Status: Acute
[2018-01-11] MEDS: Sod Chloride 0.9% Inj 1,000 ML IV.CONT SCH ×3 (00:33→16:17)
[2018-01-11] MEDS: Levofloxacin 500 mg Premix Inj 500 MG/100 ML PIGGYBACK IV.SIG SCH (08:04)
[2018-01-11 09:01] VITALS: RESP 20
[2018-01-11 12:18] VITALS: O2SAT 98
--- NOTE | 2018-01-11 16:47 | P.PNIM ---
Subjective Interval history: No new complaints Pt tolerating soft diet Moving his bowels without difficulty Minimal abd discomfort Afebrile Physical Exam Vital signs: Vital Signs 01/10/18 19:58 01/10/18 20:00 01/11/18 00:00 Temperature 98.5 F 98.5 F Pulse Rate 75 84 77 Respiratory Rate 18 18 Blood Pressure 163/96 H 134/82 Pulse Oximetry 99 97 01/11/18 04:00 01/11/18 04:07 01/11/18 08:00 Temperature 98.3 F 98.6 F Pulse Rate 80 69 73 Respiratory Rate 18 20 Blood Pressure 140/88 134/81 Pulse Oximetry 98 97 01/11/18 09:00 01/11/18 12:00 01/11/18 13:28 Temperature 98.7 F Pulse Rate 68 73 76 Respiratory Rate 20 Blood Pressure 138/85 Pulse Oximetry 98 Intake & Output 01/10/18 01/11/18 01/11/18 18:59 06:59 18:59 Intake Total 1300 / 1300 100 / 100 1200 / 1200 Balance 1300 / 1300 100 / 100 1200 / 1200 Weight 160 kg Intake: IV 1300 / 1300 100 / 100 1200 / 1200 NS Inj 1,000 ML @ 60 mls/hr IV. 1000 / 1000 1000 / 1000 CONT .[id number] YAO Rx#:[id number] Levaquin 500 mg Premix Inj 500 100 / 100 100 / 100 mg In 100 ml @ 100 mls/hr IV. SIG Q24H YAO Rx#:[id number] Flagyl 500 MG Inj 100 ML @ 100 200 / 200 100 / 100 100 / 100 mls/hr IV.SIG Q8H YAO Rx#: [id number] Other: # Voids 4 Date of Last Bowel Movement 01/08/18 01/08/18 Narrative: General: NAD, AAOx3 Chest: CTA Cardiac: Regular Abd: +BS, soft ND/NT Ext: Atrophied RLE (chronic), no edema in the LLE Results - Labs CBC & Chem 7: 01/09/18 01:40 01/09/18 01:40 Microbiology 01/09/18 01:30 Blood - Peripheral Aerobic Blood Culture - Preliminary No growth in 2 days 01/09/18 01:30 Blood - Peripheral Anaerobic Blood Culture - Preliminary No growth in 2 days 01/09/18 01:40 Blood - Peripheral Aerobic Blood Culture - Preliminary No growth in 2 days 01/09/18 01:40 Blood - Peripheral Anaerobic Blood Culture - Preliminary No growth in 2 days - Imaging Abdomen/Pelvis CT 01/09/18 01:12 CONCLUSION: 1. Diverticulitis of the distal descending colon. Prominent inflammatory changes but no perforation or abscess. 2. Right renal low-density likely cyst. 3. Density in the posterior mediastinum just posterior to the right aspect of the left atrium measuring 3.7 x 4.2 cm. This may be related to a duplication cyst or other benign etiology. Outpatient PET CT scan recommended. Chest X-Ray 01/09/18 01:12 CONCLUSION: No acute cardiopulmonary disease. Assessment and Plan - Assessment (1) Diverticulitis Code(s): K57.92 - Diverticulitis of intestine, part unspecified, without perforation or abscess without bleeding Status: Acute Plan: Acute diverticulitis - Pt is a 42 yo male with hx of spina bifida and repair of "sacromeningocele" at [facility] when he was 14. - [place] [facility] [place] with 2 days of constipation and took laxatives, then developed severe left lower quad abdomen pain and fevers. Pt seen in ED and had elevated wbc and fever - CT Abd/pelvis (01/09/18): 1. Diverticulitis of the distal descending colon. Prominent inflammatory changes but no perforation or abscess. 2. Right renal low-density likely cyst. 3. Density in the posterior mediastinum just posterior to the right aspect of the left atrium measuring 3.7 x 4.2 cm. This may be related to a duplication cyst or other benign etiology. Outpatient PET CT scan recommended. - Pt was given vanc and zosyn in ED and admitted. - he was cont on Levaquin /Flagyl - Colorectal surgery was consulted given the pts young age and this being his second bout of diverticulitis and should have an evaluation with colonoscopy as an outpt. - Pt tolerated advanced diet and has not required any pain medications. - He will be discharged to followup with Dr. Shrestha in 2 weeks. Mediastinum with apparent duplication cyst. - Pt interestingly does have hx spina bifida and club foot, so the mediastinal structure on CT is felt to be from embryonic development. - However the radiologist suggested f/u pet/ct scan to assure - This will need to be ordered by the pts PCP. He is assigned to [facility] but pt would like to be reassigned to a different [facility] PCP. - He was instructed to call [facility] services to request a new PCP and will need to make a followup at that time. (2) Mediastinal cyst, congenital Code(s): Q34.1 - Congenital cyst of mediastinum Status: Acute - Attending Attestation The exam, history, and the medical decision-making described in the above note were completed with the assistance of the mid-level provider. I reviewed and agree with the findings presented. I attest that I had a [id number] encounter with the patient on the same day, and personally performed and documented my assessment and findings in the medical record. Patient examined. Assessment and plan formulated with Leonela Ritchie PA-C. I agree with the above.
[2018-01-11 16:49] VITALS: BP 148/84; PULSE 75; TEMP 98.6
--- NOTE | 2018-01-11 18:33 | MB ---
cc: Rasta Shrestha MD, Andrew H MD Schwartz, Edward B DO DATE: 01/11/2018 REASON FOR CONSULTATION: Abdominal pain, possible diverticulitis. HISTORY OF PRESENT ILLNESS: Mr. Ortiz is a 42-year-old male with a history of previous spina bifida surgery who noted abdominal pain about 6 years ago. He was told it was from diverticulitis. Seemed to be rather minor and treated as an outpatient with antibiotics with no recurrence. The patient woke up yesterday, felt he was somewhat constipated and developed severe left-sided abdominal pain and said he had a fever maybe of about 101. Denies any shaking chills or rigors. Denies any significant diarrhea. No rectal bleeding. The patient felt the pain got worse and came to the emergency room for evaluation. He has been moving his bowels fairly well. Denies any significant diarrhea. No abdominal distention, mostly just left lower quadrant pain. The patient was seen in the emergency room, had a CT scan which showed some inflammatory changes of the colon consistent with diverticulitis and his white count was slightly elevated. He was admitted for IV fluids, bowel rest, and additional evaluation. Please see the admitting history and physical and consultation for more complete past medical and surgical history. PERTINENT PHYSICAL EXAMINATION: GENERAL: A very pleasant, heavyset male in no acute distress. ABDOMEN: Soft, not really distended. Bowel sounds are normal. Some tenderness in the lower abdomen, but no rebound or guarding or any masses noted. No obvious hernias. Anal inspection revealed benign canal. Digital exam revealed fair to good tone, no masses or tenderness. No stool in the vault. LABORATORY STUDIES: The temperature was 101.4, presently 98.6, white count 14,000. Electrolytes all pretty unremarkable with normal liver function tests. CT scan was reviewed showing inflammatory changes of the sigmoid, left colon with diverticulosis consistent with diverticulitis, no microperforation or any abscess formation. IMPRESSION: A 42-year-old male with rather acute onset of left-sided abdominal pain. Interestingly, his inflammatory changes of the colon appear more proximal than the diverticulosis seems to be on his CT scan. The patient has gotten better since being in the hospital with IV fluids and broad spectrum antibiotics. Would advance his diet and decrease his IV fluids. He is able to ambulate well without any specific pain medicine requirement. If fever stays down would be probably allowable to consider switching to oral antibiotics and continue outpatient treatment. Morris fluid intake to avoid constipation. The patient will be seen in the office in 1-2 weeks' time and probably outpatient colonoscopy will be recommended to further define the area of inflammation. If the patient should develop more fever or problem with progressive abdominal pain, he was instructed to call the office or return to the emergency room for additional urgent evaluation. Rasta Shrestha MD [facility]/ct , 05:22 PM , 05:33 PM
--- NOTE | 2018-01-16 09:24 | P.DS ---
<Jojo Hyde W - Last Filed: 01/16/18 09:21> Date of admission: 01/09/18 04:08 Primary care physician: No Primary Care Physician Attending physician on discharge: Rayo Edge Anticipated date of discharge: 01/11/18 Brief History from admission: Pt is 42 yo with hx of spina bifida and repair of "sacromeningocoele: at [facility] when he was 14. Pt says about 6 yrs ago had episode of diverticulitis resolved with po abx. 2 days ago was noted to have some constipation and hard stool. took laxative. yesterday developed severe left lower quad abdomen pain then fevers. no vomiting. Pt seen in ED and had elevated wbc and fever and CT a/p showed: 1. Diverticulitis of the distal descending colon. Prominent inflammatory changes but no perforation or abscess. 2. Right renal low-density likely cyst. 3. Density in the posterior mediastinum just posterior to the right aspect of the left atrium measuring 3.7 x 4.2 cm. This may be related to a duplication cyst or other benign etiology. Outpatient PET CT scan recommended. Pt given vanc and zosyn in ED and admitted. Currently pt says pain has improved but not resolved. 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 s/p surgical correction diverticulitis SH: rare etoh 1 ppd tob x 15yrs FH: father dissection aorta AVR DS: Diagnosis - Discharge Diagnosis (1) Diverticulitis Status: Acute (2) Mediastinal cyst, congenital Status: Acute DS: Medications - Discharge Medications Prescriptions: docusate sodium [Colace] 100 mg PO BID 30 Days #60 cap levofloxacin [Levaquin] 500 mg PO DAILY 7 Days #7 tab metronidazole [Flagyl] 500 mg PO TID 7 Days #21 tab DS: Summary Hospital Course: Acute diverticulitis - Pt is a 42 yo male with hx of spina bifida and repair of "sacromeningocele" at [facility] when he was 14. - Pt was admitted to [facility] on 01/09/18 with 2 days of constipation and took laxatives, then developed severe left lower quad abdomen pain and fevers. Pt seen in ED and had elevated wbc and fever - CT Abd/pelvis (01/09/18): 1. Diverticulitis of the distal descending colon. Prominent inflammatory changes but no perforation or abscess. 2. Right renal low-density likely cyst. 3. Density in the posterior mediastinum just posterior to the right aspect of the left atrium measuring 3.7 x 4.2 cm. This may be related to a duplication cyst or other benign etiology. Outpatient PET CT scan recommended. - Pt was given vanc and zosyn in ED and admitted. - he was cont on Levaquin /Flagyl - Colorectal surgery was consulted given the pts young age and this being his second bout of diverticulitis and should have an evaluation with colonoscopy as an outpt. - Pt tolerated advanced diet and has not required any pain medications. - He will be discharged to followup with Dr. Shrestha in 2 weeks. Mediastinum with apparent duplication cyst. - Pt interestingly does have hx spina bifida and club foot, so the mediastinal structure on CT is felt to be from embryonic development. - However the radiologist suggested f/u pet/ct scan to assure - This will need to be ordered by the pts PCP. He is assigned to [facility] but pt would like to be reassigned to a different [facility] PCP. - He was instructed to call [facility] services to request a new PCP and will need to make a followup at that time. - Time Spent with Patient Total time spent providing and/or coordinating discharge services: Greater than 30 minutes - Quality: VTE Deep Vein Thrombosis/Pulmonary Embolism Present on Admission: No Exam Narrative: General: NAD, AAOx3 Chest: CTA Cardiac: Regular Abd: +BS, soft ND/NT Ext: Atrophied RLE (chronic), no edema in the LLE Results Procedures completed during hospitalization: None - Impressions ITS Impressions Abdomen/Pelvis CT 01/09/18 01:12 CONCLUSION: 1. Diverticulitis of the distal descending colon. Prominent inflammatory changes but no perforation or abscess. 2. Right renal low-density likely cyst. 3. Density in the posterior mediastinum just posterior to the right aspect of the left atrium measuring 3.7 x 4.2 cm. This may be related to a duplication cyst or other benign etiology. Outpatient PET CT scan recommended. Chest X-Ray 01/09/18 01:12 CONCLUSION: No acute cardiopulmonary disease. <Rayo Edge - Last Filed: 01/16/18 16:00> Date of admission: 01/09/18 04:08 Primary care physician: No Primary Care Physician DS: Diagnosis - Discharge Diagnosis (1) Diverticulitis Status: Acute (2) Mediastinal cyst, congenital Status: Acute DS: Summary Hospital Course: The exam, history, and the medical decision-making described in the above note were completed with the assistance of the mid-level provider. I reviewed and agree with the findings presented. I attest that I had a [id number] encounter with the patient on the same day, and personally performed and documented my assessment and findings in the medical record. Patient examined. Assessment and plan formulated with Jojo Hdye PA-C. I agree with the above. - Time Spent with Patient Total time spent providing and/or coordinating discharge services: Greater than 30 minutes Results - Impressions ITS Impressions Abdomen/Pelvis CT 01/09/18 01:12 CONCLUSION: 1. Diverticulitis of the distal descending colon. Prominent inflammatory changes but no perforation or abscess. 2. Right renal low-density likely cyst. 3. Density in the posterior mediastinum just posterior to the right aspect of the left atrium measuring 3.7 x 4.2 cm. This may be related to a duplication cyst or other benign etiology. Outpatient PET CT scan recommended. Chest X-Ray 01/09/18 01:12 CONCLUSION: No acute cardiopulmonary disease. Discharge Plan - Discharge Order Discharge Orders: Discharge Order (Routine); Ordered 01/11/18 Ordered By: Leonela Ritchie - Discharge Details Anticipated Discharge Date: 01/11/18 Discharge Comment: Followup with Dr. Shrestha in 2 weeks, call for an appt - Physicians Team Primary Care Provider: Primary Care Physici,Shama Attending Provider: Ronald Alexander Other Providers: Rasta Shrestha MD
== END 2018-01-11 19:45 | disposition home or self-care (01) ==
LOC: NEPE 00:47 → NEDA 04:08 → N05 05:08
PROVIDERS: ADMIT Hospitalist; ATTEND Hospitalist